=== PATIENT | female | born 1955 | race Caucasian/White ===

== ENCOUNTER 2016-04-04 06:00 | Day surgery (SDC) | payer OTHER ==
[2016-04-04] VITALS (22 sets, daily range): BP systolic 118–178; BP diastolic 59–81; PULSE 61–80; RESP 12–25; Ht 165.1 cm; Wt 109.0 kg
[~2016-04-04] VITALS: Ht 165.1 cm; Wt 109.0 kg
[~2016-04-04 06:00] MED LIST: SOD CHLORIDE 0.9% 1,000 ML IV ONE
[2016-04-04] MEDS ORDERED: ASPI81TA3 PO (07:12)
[2016-04-04] MEDS ORDERED: OMEG1CAP90 PO (07:12)
[2016-04-04] MEDS ORDERED: ATEN50TA PO (07:12)
[2016-04-04] MEDS ORDERED: LOSA100T7 PO (07:12)
[2016-04-04] MEDS ORDERED: CHOL400T10 PO (07:12)
[2016-04-04] MEDS ORDERED: ISOS60TA PO (07:12)
[2016-04-04] MEDS ORDERED: LEVO100T87 PO (07:12)
[2016-04-04 07:18] LABS: BASOPHILS % 0.4 % (0.0-2.0); EOSINOPHILS # 0.2 10^3/ul (0.0-0.5); EOSINOPHILS % 2.2 % (0.0-7.0); HEMATOCRIT 41.7 % (37.0-47.0); HEMOGLOBIN 14.2 g/dl (12.0-16.0); LYMPHOCYTES # 2.7 10^3/ul (0.8-2.9); LYMPHOCYTES % 25.4 % (15.0-51.0); MEAN CORPUSCULAR HEMOGLOBIN 30.2 pg (29.0-33.0); MEAN CORPUSCULAR VOLUME 88.9 fl (82.0-101.0); MEAN PLATELET VOLUME 8.3 fl (7.4-10.4); MONOCYTE # 0.6 10^3/ul (0.3-0.9); MONOCYTES % 6.1 % (0.0-11.0); NEUTROPHIL # 6.9 10^3/ul (1.6-7.5); NEUTROPHILS % 65.9 % (39.0-77.0); PLATELET COUNT 298 10^3/UL (140-440); RED BLOOD COUNT 4.69 10^6/ul (4.20-5.40); RED CELL DISTRIBUTION WIDTH 13.8 % (11.5-14.5); UNCORRECTED WBC 10.5 10^3/ul (4.8-10.8); WHITE BLOOD COUNT 10.5 10^3/ul (4.8-10.8)
[2016-04-04] MEDS ORDERED: METF-382 PO (07:19)
[2016-04-04 07:21] LABS: CONDITION 1; INR 0.97; PROTIME 12.9 Sec (12.2-14.2)
[2016-04-04 07:22] LABS: PARTIAL THROMBOPLASTIN TIME 28.2 Sec (25.0-35.0)
[2016-04-04] MEDS ORDERED: MIDAZOLAM 1 MG/ML 2 ML INJ ONE (07:29)
[2016-04-04] MEDS ORDERED: LIDOCAINE 1% (MDV) 20 ML INJ ONE (07:29)
[2016-04-04] MEDS ORDERED: HEPARIN 1000 UNITS/ML 10 ML INJ ONE (07:29)
[2016-04-04] MEDS ORDERED: VERAPAMIL 5 MG INJ ONE (07:29)
[2016-04-04] MEDS ORDERED: IODIXANOL LOCM 100 ML BTL ONE (07:29)
[2016-04-04 07:30] LABS: CALCIUM 9.1 mg/dl (8.4-10.2); CREATININE 0.77 mg/dl (0.44-1.00); POTASSIUM 4.6 mmol/L (3.5-5.1)
[2016-04-04] MEDS ORDERED: FENTAnyl 50 MCG/ML VIAL ONE (07:31)
[2016-04-04] MEDS ORDERED: NITROGLYCERIN (IC) 100 MCG/ML INJ ONE (07:39)
--- NOTE | 2016-04-04 08:59 | PDOCDIS ---
Discharge Instructions CONDITION Patient Condition: Good HOME CARE INSTRUCTIONS: Diet Instructions: Low Fat /Cholesterol ACTIVITY: Activity Restrictions: Avoid heavy lifting (x 3 days) Do not Drive (x1 day) OTHER ORDERS: Other Orders: Hold metformin until 04/07/16 Kb Gonsalez DO Apr 04, 2016 08:59
[2016-04-04] MEDS ORDERED: SOD CHLORIDE 0.9% 1,000 ML IV SCH (10:49)
--- NOTE | 2016-04-04 13:13 | CARRPT ---
DATE OF PROCEDURE: 04/04/2016 PROCEDURES: 1. Left heart catheterization. 2. Right and left coronary angiogram. 3. Interpretation and supervision of right and left coronary angiogram. 4. Left ventricular pressure measurements. 5. Right radial artery approach. PATIENT HISTORY: This is a 61-year-old female who presents with abnormal stress test and dyspnea on exertion. FINDINGS: HEMODYNAMICS: 1. LV pressure was 163 over negative 8 with an EDP of 14. 2. Aortic was 165/88. CORONARY ANATOMY: 1. RCA is a medium to large caliber vessel and is dominant with distal 10% stenosis. 2. Left main is a large caliber vessel with no significant disease. 3. Circumflex is a medium to large caliber vessel with distal 10% stenosis. 4. LAD is a large caliber vessel with distal 10% stenosis. DESCRIPTION OF PROCEDURE: The patient was brought to the laborer demolition after informed consent. The patient was prepped and draped as per protocol. Right radial access was obtained and a 5/6-Macedonian sheath was placed in the right radial artery. A 5-Macedonian JL4 diagnostic catheter was used to enter the left ventricle. Pressure measurements were obtained as well as pullback. We next engaged the RCA and angiogram was performed. We next used a 5-Macedonian JL3.5 diagnostic catheter and to engage the left main and angiogram was performed. There is no evidence of any obstructive epicardial coronary artery disease. All catheters and wires were removed. There were no immediate complications. DIAGNOSIS: Minimal nonobstructive epicardial coronary artery disease. COMPLICATIONS: None. BLOOD LOSS: Minimal. RECOMMENDATIONS: Medical management. Dictated By: EVERETTE EISENBERG/GALEN Conf#: [id number] DID#: [id number]
--- NOTE | 2016-04-05 14:36 | RADRPT ---
Vent Rate: 65 bpm RR Interval: 0 msec [place] Interval: 156 msec QRS Duration: 142 msec QT Interval: 484 msec QTC Interval: 503 msec P-R-T [place]: 43 - -29 - 38 degrees Normal sinus rhythm Left bundle branch block Abnormal ECG Electronically Signed By: Kb Gonsalez [id number]
== END 2016-04-04 13:12 | disposition home or self-care (01) ==
LOC: SDS 06:00
PROVIDERS: ATTEND Internal Medicine Cardiovascular Disease
DX: I25.10 Atherosclerotic heart disease of native coronary artery without angina pectoris (principal); R94.39 Abnormal result of other cardiovascular function study
CPT/HCPCS: 80048; 85025; 85610; 85730; 93005; 93458; C1769; C1887; J1644; J2250; J3010; Q9967